=== PATIENT | male | born 1950 | race Caucasian/White ===

== ENCOUNTER 2024-11-19 23:11 | Emergency (ER) | payer MEDICARE, BC, SELFPAY ==
--- NOTE | 2024-11-19 23:13 | CT_ITS ---
PROCEDURE INFORMATION: Exam: CT Head Without Contrast Exam date and time: 11/19/2024 11:50 PM Age: 74 years old Clinical indication: Injury or trauma; Fall; Blunt trauma (contusions or hematomas); Additional info: AMS, fall TECHNIQUE: Imaging protocol: Computed tomography of the head without contrast. Radiation optimization: All CT scans at this facility use at least one of these dose optimization techniques: automated exposure control; mA and/or kV adjustment per patient size (includes targeted exams where dose is matched to clinical indication); or iterative reconstruction. COMPARISON: CT HEAD/BRAIN WO CON 11/19/2024 11:50 PM FINDINGS: Brain: No evidence for intracranial hemorrhage, mass lesions or acute stroke. Intracranial vascular calcifications. Moderate small vessel ischemic change in the periventricular white matter. Old lacunar infarct left caudate head image 3/38. Old lacunar infarcts bilateral external capsule regions. Old small lacunar infarct right basal ganglia. Encephalomalacia and gliosis left posterior parietal lobe image 3/45; likely remote infarct. Old white matter lacunar infarct left awan radiata image 5/157 Cerebral ventricles: Ex vacuo enlargement left frontal horn. Pituitary gland and sella: Negative Paranasal sinuses: Visualized sinuses are unremarkable. No fluid levels. Mastoid air cells: Visualized mastoid air cells are well aerated. Orbital cavities: Bilateral cataract extractions. Bones: Unremarkable. No acute fracture. Soft tissues: Unremarkable. Vasculature: Negative. Other findings: Mild generalized atrophy. IMPRESSION: 1. No evidence for intracranial hemorrhage, mass lesions or acute stroke. 2. Intracranial vascular calcifications. 3. Mild generalized atrophy. 4. Moderate small vessel ischemic change in the periventricular white matter. 5. Old lacunar infarct left caudate head image 3/38. 6. Ex vacuo enlargement left frontal horn. 7. Old lacunar infarcts bilateral external capsule regions. 8. Old small lacunar infarct right basal ganglia. 9. Encephalomalacia and gliosis left posterior parietal lobe image 3/45; likely remote infarct. 10. Old white matter lacunar infarct left awan radiata image 5/157 11. Bilateral cataract extractions.
--- NOTE | 2024-11-19 23:13 | XR_ITS ---
PROCEDURE INFORMATION: Exam: XR Chest Exam date and time: 11/20/2024 12:04 AM Age: 74 years old Clinical indication: Injury or trauma; Fall; Blunt trauma (contusions or hematomas); Additional info: Fall AMS TECHNIQUE: Imaging protocol: Radiologic exam of the chest. Views: 1 view. COMPARISON: CT CERVICAL SPINE WO CON 11/19/2024 11:53 PM FINDINGS: Tubes, catheters and devices: Left chest wall pacemaker/ICD with the leads in the right atrium and right ventricle. Lungs: Unremarkable. No consolidation. Pleural spaces: Unremarkable. No pleural effusion. No pneumothorax. Heart/Mediastinum: Mediastinal clips. Bones/joints: Sternotomy wires. Acute appearing minimally displaced fracture of the left anterolateral 9th rib. Mild bony deformity of the left anterolateral 5th and 6th ribs may represent nondisplaced fractures. IMPRESSION: Acute appearing minimally displaced fracture of the left anterolateral 9th rib. Mild bony deformity of the left anterolateral 5th and 6th ribs may represent nondisplaced fractures.
--- NOTE | 2024-11-19 23:13 | XR_ITS ---
PROCEDURE INFORMATION: Exam: XR Right Hip Exam date and time: 11/20/2024 12:04 AM Age: 74 years old Clinical indication: Injury or trauma; Fall; Blunt trauma (contusions or hematomas); Does not apply; Pelvic region; Additional info: Fall known hardware TECHNIQUE: Imaging protocol: Radiologic exam of the right hip. Views: 2 or 3 views hip with pelvis when performed. COMPARISON: CT BONY PELVIS 11/19/2024 11:57 PM FINDINGS: Bones/joints: Known comminuted periprosthetic right hip intertrochanteric fracture is poorly visualized on this exam. Right femoral cephalomedullary nail with interlocking screw. Moderate degenerative changes of the bilateral hips. Soft tissues: Unremarkable. IMPRESSION: Known comminuted periprosthetic right hip intertrochanteric fracture is poorly visualized on this exam.
--- NOTE | 2024-11-19 23:13 | CT_ITS ---
PROCEDURE INFORMATION: Exam: CT Cervical Spine Without Contrast Exam date and time: 11/19/2024 11:53 PM Age: 74 years old Clinical indication: Injury or trauma; Fall; Blunt trauma; Additional info: Fall, AMS TECHNIQUE: Imaging protocol: Computed tomography of the cervical spine without contrast. Radiation optimization: All CT scans at this facility use at least one of these dose optimization techniques: automated exposure control; mA and/or kV adjustment per patient size (includes targeted exams where dose is matched to clinical indication); or iterative reconstruction. COMPARISON: CT HEAD/BRAIN WO CON 11/19/2024 11:50 PM FINDINGS: Bones: Spinal alignment is normal. No fracture or bone destruction. Predental space narrowing and proliferative changes around the dens consistent with arthritis. [id number] multilevel degenerative disc disease predominantly at C5-C6, C6-C7, C7-T1 with disc space narrowing and small posterior projecting disc osteophyte complexes. Mild multilevel facet arthropathy. Lungs: Lung apices are normal. Vasculature: Bilateral carotid calcifications. Soft tissues: Unremarkable. IMPRESSION: 1. Spinal alignment is normal. 2. No fracture or bone destruction. 3. Predental space narrowing and proliferative changes around the dens consistent with arthritis. 4. [id number] multilevel degenerative disc disease predominantly at C5-C6, C6-C7, C7-T1 with disc space narrowing and small posterior projecting disc osteophyte complexes. 5. Mild multilevel facet arthropathy. 6. Bilateral carotid calcifications.
--- NOTE | 2024-11-19 23:13 | CT_ITS ---
PROCEDURE INFORMATION: Exam: CT Thoracic Spine Without Contrast Exam date and time: 11/19/2024 11:53 PM Age: 74 years old Clinical indication: Injury or trauma; Fall; Blunt trauma (contusions or hematomas); Additional info: Fall, chronic pain in exacerbation TECHNIQUE: Imaging protocol: Computed tomography of the thoracic spine without contrast. Radiation optimization: All CT scans at this facility use at least one of these dose optimization techniques: automated exposure control; mA and/or kV adjustment per patient size (includes targeted exams where dose is matched to clinical indication); or iterative reconstruction. COMPARISON: CT CERVICAL SPINE WO CON 11/19/2024 11:53 PM FINDINGS: Tubes, catheters and devices: Partially included pacemaker wires in the right atrium and right ventricle. Watchman device. Bones/joints: No acute fracture or malalignment. Mild multilevel spondylosis. Mild lower thoracic Schmorl nodes. Soft tissues: Unremarkable. Coronary arteries: Severe coronary artery calcifications. IMPRESSION: No acute fracture or malalignment.
--- NOTE | 2024-11-19 23:13 | CT_ITS ---
PROCEDURE INFORMATION: Exam: CT Pelvis Without Contrast, Skeleton Exam date and time: 11/19/2024 11:57 PM Age: 74 years old Clinical indication: Injury or trauma; Fall; Blunt trauma (contusions or hematomas); Bilateral; Pelvic region; Additional info: Fall recent R hip FX TECHNIQUE: Imaging protocol: Computed tomography of the pelvis without contrast. Exam focused on the skeleton. Radiation optimization: All CT scans at this facility use at least one of these dose optimization techniques: automated exposure control; mA and/or kV adjustment per patient size (includes targeted exams where dose is matched to clinical indication); or iterative reconstruction. COMPARISON: CT LUMBAR SPINE WO CON 11/19/2024 11:53 PM FINDINGS: Reproductive: Prominent prostatomegaly measuring 7.5 x 6.7 x 9.9 cm with prominent intravesicular prostatic protrusion. Bones/joints: Acute mildly comminuted intertrochanteric periprosthetic right femur fracture. Postoperative changes of right femoral cephalomedullary nail with interlocking screw. The hardware is intact. Bilateral hip joints are intact. Mild fragmentation of the bilateral posterior acetabular shipman likely secondary to degenerative changes. Soft tissues: Right hip postoperative changes. IMPRESSION: 1. Acute mildly comminuted intertrochanteric periprosthetic right femur fracture. The hardware is intact. 2. Prominent prostatomegaly with large intravesicular prostatic protrusion. Recommend correlation with PSA
--- NOTE | 2024-11-19 23:13 | CT_ITS ---
PROCEDURE INFORMATION: Exam: CT Lumbar Spine Without Contrast Exam date and time: 11/19/2024 11:53 PM Age: 74 years old Clinical indication: Injury or trauma; Fall; Blunt trauma (contusions or hematomas); Additional info: Fall, chronic pain in exacerbation TECHNIQUE: Imaging protocol: Computed tomography of the lumbar spine without contrast. Radiation optimization: All CT scans at this facility use at least one of these dose optimization techniques: automated exposure control; mA and/or kV adjustment per patient size (includes targeted exams where dose is matched to clinical indication); or iterative reconstruction. COMPARISON: CT THORACIC SPINE WO CON 11/19/2024 11:53 PM FINDINGS: Bones/joints: No acute fracture. Moderate multilevel spondylosis. Mild facet arthropathy. Partial bilateral L5 pars defects. Mild disc bulge throughout the lumbar spine with no significant spinal canal stenosis. Mild multilevel neural foraminal narrowing most notably L5-S1. Soft tissues: Unremarkable. IMPRESSION: 1. No acute fracture or malalignment. 2. Multilevel spondylosis without significant spinal canal stenosis. Mild multilevel neural foraminal narrowing
--- NOTE | 2024-11-19 23:16 | ED_ITS ---
Discharge Plan Disposition Patient Disposition: Home, Self-Care Condition: Good Prescriptions Prescriptions: New bacitracin 500 unit/gram packet 1 applic topical BID Qty: 144 0RF Rx Instructions: Apply to scalp wound twice daily for 7 days Referrals Follow up/Referrals: Humera Cowart MD [Physician] - See instructions (incidental pulmonary nodule) Activity Restrictions/Add. Instructions Additional Instructions/Restrictions: Boris was evaluated in the ER and is appropriate for discharge at this time. Continue all home medications as previously prescribed. He should continue following up with all of his specialists including cardiology, Ortho as scheduled. Use the prescribed bacitracin as directed on the scalp wound. Keep it clean and dry. He should also follow-up with his primary care doctor for reevaluation in a few days. Return to the ER with any new, worsening, or otherwise concerning symptoms. Clinical Impressions Clinical Impression: Fall, Dementia, Combative behavior, Abrasion of scalp, Pulmonary nodule Instructions Patient Instructions: DI for Altered Mental Status Print Language Print Language: Urugu[place] Discharge ED Provider: Carina Charles General Adult HPI General Chief complaint: Fall Stated complaint: AMS, agitated Time Seen by Provider: 11/19/24 23:12 History of Present Illness HPI narrative: 74-year-old male with history of recent right hip fracture and surgery who reportedly was admitted to [facility] from [place] after his initial injury presents to the ER after concerns of fall and combativeness. EMS reports patient slid out of his chair at the long term. Mild strike to the back of the head with abrasion but no loss of consciousness. Reportedly after falling, staff attempting to assist him but he became combative. EMS reports patient was pleasant with them as long as he was not provoked. They do report he has been confused and only seemed oriented to self. Patient complains of right hip pain but states it is not any worse than it had been previously. He also states he has chronic back and neck pain which are not worse than normal. He denies any other pain. He does have mild confusion and difficulty answering questions and states he has been forgetful for the last few days. He denies feeling sick, denies fevers, chills, chest pain or cough, no difficulty breathing, denies abdominal pain, nausea, vomiting, diarrhea, or dysuria. Patient reports to me he is currently living with his and thinks his is messing up his medications. Patient is currently living at [facility]. Related Data Previous Rx's ?Medication ?Instructions ?Recorded bacitracin 500 unit/gram topical 1 applic topical BID #144 ea 11/20/24 packet Allergies Allergy/AdvReac Type Severity Reaction Status Date / Time No Known Allergies Allergy Verified 11/19/24 23:42 [facility] Disclaimer: The information contained in this section may have been updated after the patient was seen, as this information can be updated by other users. Social History Smoking Status: Former smoker alcohol intake: former current occupational status: retired Travel in the last 8 weeks: None ROS Obtained: Yes Systems reviewed as appropriate & no additional complaints except as documented per HPI Physical Exam General General appearance: alert and in no apparent distress Head Head exam: normocephalic and other (Old, healing abrasion on patient's frontal scalp, new, hemostatic abrasion on patient's posterior parietal scalp) Eye Eye exam: Present PERRL and EOMI ENT ENT exam: Present mucous membranes moist Neck Neck exam: Present normal inspection and full ROM; Absent tenderness Chest Chest inspection: Present symmetric chest wall rise; Absent tenderness Respiratory Respiratory exam: Present normal lung sounds bilaterally and other (Saturating 95% on room air); Absent respiratory distress, wheezes or stridor Cardiovascular Cardiovascular exam: Present tachycardia and irregular rhythm Abdominal Exam Abdominal exam: Present soft; Absent distention or tenderness Extremities Exam Extremities exam: Present full ROM, edema (Mild +1 bilateral pitting edema) and other (Right hip with 2 small incisions with nicole. Incisions are clean, dry, healing well, no evidence of infection. No dehiscence); Absent joint swelling or calf tenderness Back Exam Back exam: Absent tenderness Neurological Exam Neurological exam: Present alert; Absent oriented X3 (Oriented only to self) or motor sensory deficit Psychiatric Psychiatric exam: Present normal affect and normal mood Skin Skin exam: Present warm and dry Medical Decision Making Medical Records Medical records reviewed: Yes I reviewed the patient's medical records. Screening: Per USPSTF and CDC recommendations, given the prevalence of disease in our region, it is our hospital?s policy to screen for HIV and viral Hepatitis for all patients aged 18 and over and those with ongoing risk factors. [facility] Inquiry Pt receiving controlled substance: No Vital Signs: 11/19/24 23:30 11/20/24 04:12 Temperature 97.9 F 98.4 F Temperature Source Oral Pulse Rate 115 H Pulse Rate [Right] 111 H Respiratory Rate 22 20 Blood Pressure 130/77 Blood Pressure [Right Arm] 123/86 Blood Pressure Mean [Right Arm] 98 02 Sat by Pulse Oximetry 95 Lab Data Lab Results 11/19/24 01:19: Urine Color Yellow, Urine Appearance Clear, Urine pH 5.5, Ur Specific Rogers >= 1.030, Urine Protein 30, Urine Glucose (UA) Negative, Urine Ketones Negative, Urine Blood Large, Urine Nitrate Negative, Urine Bilirubin Negative, Urine Urobilinogen 0.2, Ur Leukocyte Esterase Negative, Urine RBC 20- 50, Urine WBC None, Ur Squamous Epith Cells Occasional, Urine Bacteria Trace, Urine Opiates Screen Negative, Urine Methadone Screen Negative, Ur Barbituates Screen Negative, Ur Phencyclidine Scrn Negative, Ur Amphetamines Screen Negative, U Benzodiazepines Scrn Negative, Urine Cocaine Screen Negative, U Marijuana (THC) Screen Negative 11/19/24 23:25: WBC 7.2, RBC 3.24 L, Hgb 8.9 L, Hct 28.0 L, MCV 86.4, MCH 27.5, MCHC 31.8, RDW 16.6, Plt Count 447 H, MPV 9.4, Neut % (Auto) 72.6, Lymph % (Auto) 16.6, Adams % (Auto) 7.7, Eos % (Auto) 1.9, Baso % (Auto) 0.6, Neut # (Auto) 5.3, Lymph # (Auto) 1.2, Adams # (Auto) 0.6, Eos # (Auto) 0.1, Baso # (Auto) 0.0, PT 11.6, INR 1.04, Sodium 136, Potassium 3.5, Chloride 100, Carbon Dioxide 34 H, Anion Gap 5.5, BUN 19, Creatinine 1.20, Estimated Creat Clear 60, Estimated GFR 59, Est GFR ( Amer) 71, Glucose 221 H, Calcium 8.9, Total Bilirubin 0.5, AST 25, ALT 19, Alkaline Phosphatase 99, Troponin I 0.03, Total Protein 7.1, Albumin 4.0, Globulin 3.1, Albumin/Globulin Ratio 1.3 11/19/24 23:29: VBG pH 7.35, VBG pCO2 47.6, VBG pO2 33.0, VBG HCO3 25.9, VBG Total CO2 27.4 H, VBG O2 Saturation 57.2, VBG Base Excess 0.4, VBG Lactic Acid 2.4 H 11/20/24 03:20: Troponin I 0.02 11/19/24 23:25 11/19/24 23:25 Orders (Tests/Meds): ED MEDICATIONS Discontinued Medications Generic Name Dose Route Start Last Admin Trade Name Freq PRN Reason Stop Dose Admin Lactated Ringer's 1,000 mls @ 999 mls/hr 11/19/24 23:13 11/19/24 23:54 Lactated Ringer's 1000 Ml Bag IV 11/20/24 00:13 999 mls/hr .Q1H1M ONE Administration Iopamidol 75 ml 11/20/24 01:58 11/20/24 01:58 Iopamidol-370 (76%);100ml Bottle IV 11/20/24 01:59 75 ml ONCE ONE Administration Morphine Sulfate 4 mg 11/20/24 01:51 11/20/24 02:00 Morphine 4mg/Ml Syringe IV 11/20/24 01:52 4 mg ONCE ONE Administration Sodium Chloride 10 ml 11/20/24 01:58 11/20/24 01:58 Sodium Chloride 0.9% 10ml Syr (Rad Only) IV 12/20/24 01:57 10 ml NEEDED PRN Administration Maintain IV Site ORDERS Category Date Time Status CT abdomen pelvis w con Stat Cat Scan 11/20/24 01:[address] bony pelvis Stat Cat Scan 11/19/24 23:[address] cervical spine wo con Stat Cat Scan 11/19/24 23:[address] chest w con Stat Cat Scan 11/20/24 01:[address] head/brain wo con Stat Cat Scan 11/19/24 23:[address] lumbar spine wo con Stat Cat Scan 11/19/24 23:[address] thoracic spine wo con Stat Cat Scan 11/19/24 23:13 Completed CXR --portable [XR chest portable] Stat Exams 11/19/24 23:13 Completed Hip XR right minimum 2 views [XR hip RT 2-3V w/pelvis] Exams 11/19/24 23:13 Completed Stat CBC w/Auto Diff [Complete Blood Count Auto Diff] Stat Lab 11/19/24 23:25 Completed CMP [Comprehensive Metabolic Panel] Stat Lab 11/19/24 23:25 Completed Lactic Acid Follow Up (RFLX 1) Stat Lab 11/20/24 03:36 Ordered PT INR [Prothrombin Time INR] Stat Lab 11/19/24 23:25 Completed Trop I [Troponin I] Stat Lab 11/19/24 23:25 Completed Troponin I Q3H Lab 11/20/24 03:20 Completed Troponin I Q3H Lab 11/20/24 05:30 Ordered UDS [Drug Screen,Urine] Stat Lab 11/19/24 01:19 Completed Urinalysis and Microscopic Stat Lab 11/19/24 01:19 Completed VBG [Venous Blood Gas] Stat RT 11/19/24 23:29 Completed Medical Decision Narrative: In summary, this 74-year-old male with comorbidities including dementia, recent fall with right hip fracture and ORIF presents to the emergency department today with concerns of agitation and combativeness from long term as well as fall. On initial evaluation patient is hemodynamically stable, afebrile. Patient has transient tachycardia and appears to be in A-fib with normotensive blood pressures. He has old well-healing scrape on his forehead with new abrasion on the right posterior parietal scalp without associated hematoma or evidence of skull fracture, patient is a GCS 14 only oriented to self. 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 Patient reports unchanged pain in his right hip and back. Right hip has well-healing surgical incisions. No tenderness along the spine, chest, pelvis, or extremities. Differential diagnosis includes but is not limited to intracranial bleed, cannot rule out C-spine injury with patient's age, also considered other spine injury, new hip fracture, intrathoracic injury though I have lower suspicion for this. With patient's combativeness I considered advancing dementia, urinary tract infection, metabolic abnormality. Based on these concerns, I ordered noncontrast head CT and CTs of the spine and pelvis, serum labs, urine studies. ECG personally interpreted demonstrates atrial fibrillation, rate 115, indeterminate axis, normal QTc, right bundle branch block, patient has lateral ST changes but no STEMI. Repeat ECG demonstrates patient continues to be in A- fib with rate 121, indeterminate axis, right bundle branch block, normal QTc, no STEMI, no dynamic changes. Patient is afebrile varied between the 80s and 120s while in the ER. Never required intervention. He was normotensive throughout. Patient received IV fluids initially for treatment. Labs personally reviewed demonstrate no leukocytosis,. Patient has anemia with hemoglobin 8.9 nonactionable at this time, mild thrombocythemia, PT/INR normal, VBG with slightly elevated lactic which is nonspecific, patient is already receiving IV fluids. CMP nonactionable at this time. Initial troponin 0.03 repeat troponin pending. XR personally interpreted demonstrates chest and pelvic x-ray personally interpreted do not demonstrate pneumothorax, hemothorax, or new pelvic fracture. Radiology read comments on left rib fracture Initial CT imaging of the head and spines were personally interpreted by me and do not demonstrate acute traumatic injury, patient does have age-related changes and degenerative changes of the spine. See radiology read for full interpretations Radiology read of the pelvis, and send intertrochanteric hip fracture. We obtained records from [place] which demonstrate that this was the patient's initial injury when he had the ORIF. Due to the findings of left rib fracture on x-ray, I added CT chest, abdomen, pelvis with contrast to ensure there was no other new traumatic injury. On CT the rib fracture appears to be subacute. Patient does not have acute tenderness in this area either. No acute intra- abdominal pathology. Referral for follow-up of incidental pulmonary nodule was provided. After CT patient was complaining of pain so he received small dose of IV morphine. He typically takes Percocet at the nursing facility. Patient's was contacted. She states the patient does have a history of atrial fibrillation and is not on blood thinners because he has a watchman. He does take aspirin and Plavix. He also takes metoprolol for rate control. She also states the patient has dementia and has brief episodes of clarity followed by confusion. She states the agitation and combativeness has been the newer problem. Repeat troponin 0.02. No UTI. Patient is resting comfortably and has not been combative with us. When he got woken up from sleep, he was briefly agitated but very easily verbally de-escalated and reassured. I believe his combativeness is likely a combination of dementia combined with pain from his injury and surgery as well as living in the nursing facility which is likely confusing to him. I do not have an indication for admission at this time since patient has reassuring labs and no evidence of acute traumatic injury on imaging. I believe he is appropriate to go back to the facility at this time. Scalp wound was cleaned and I prescribed bacitracin for outpatient use. Patient and facility were given instructions on continued symptomatic monitoring and management, follow-up, return precautions. Understanding was indicated and the patient was discharged in stable condition. Critical Care Critical Care Time Critical Care Time: No
[2024-11-19 23:30] VITALS: BP 123/86; PULSE 111; RESP 22; TEMP 36.6; O2SAT 95; BMI 26.6
[2024-11-19 23:33] LABS: Basophils % 0.6 % (0.1-2.0); Eosinophils # 0.1 K/mm3 (0.0-0.4); Eosinophils % 1.9 % (0.1-12.0); Hemoglobin 8.9 g/dL (14.1-18.0); Lymphocytes # 1.2 K/mm3 (0.7-4.5); Lymphocytes % 16.6 % (10-50); Mean Corpuscular HGB Conc 31.8 g/dL (31.8-35.4); Mean Corpuscular Hemoglobin 27.5 pg (27.0-31.2); Mean Corpuscular Volume 86.4 fl (80-94); Mean Platelet Volume 9.4 fl (7.4-10.4); Monocytes # 0.6 K/mm3 (0.1-1.0); Monocytes % 7.7 % (1.7-9.3); Neutrophils # 5.3 K/mm3 (1.8-7.8); Neutrophils % 72.6 % (37.0-80.0); Platelet Count 447 K/mm3 (142-424); Red Blood Count 3.24 M/mm3 (4.60-6.20); Red Cell Distribution Width 16.6 % (11.5-17.5); White Blood Count 7.2 K/mm3 (4.8-10.8)
[2024-11-19 23:34] LABS: VBG Base Excess 0.4 mmol/L (-2.4-2.3); VBG HCO3 25.9 mmol/L (23-30); VBG Oxygen Saturation 57.2 % (50-70); VBG PCO2 47.6 mmol/L (35-51); VBG PH 7.35 mmol/L (7.31-7.41); VBG Total CO2 27.4 mmol/L (23-27)
[2024-11-19 23:36] LABS: Lactate Venous 2.4 mmol/L (0.4-2.0)
[2024-11-19 23:38] LABS: Chloride 100 mmol/L (98-107)
[2024-11-19 23:39] LABS: Potassium 3.5 mmoL/L (3.5-5.1); Sodium 136 mmol/L (136-145)
--- NOTE | 2024-11-19 23:40 | ECG_ITS ---
APPROVED REPORT Exam: Resting ECG HR:115 bpm ECG Measurements Heart Rate 115 AXES QRSd 141 QRS -32 QT 361 T 38 QTc 429 Conclusion ATRIAL FIBRILLATION WITH RAPID VENTRICULAR RESPONSE INDETERMINATE AXIS RIGHT BUNDLE BRANCH BLOCK [120+ ms QRS DURATION, UPRIGHT V1, 40+ ms S IN I/aVL/V4/V5/V6] ST DEVIATION AND MODERATE T-WAVE ABNORMALITY, CONSIDER LATERAL ISCHEMIA [-0.1+ mV T-WAVE IN I/aVL/V5/V6] No STEMI Electronically signed by : MARSHALL UMANA, 11/20/2024 06:19:24
[2024-11-19 23:41] LABS: Blood Urea Nitrogen 19 mg/dl (9-20); Creatinine Clearance Estimated 60 mL/min (50-200); Estimated Glomerular Filt Rate 59 ml/min (>60); GFR (African American) 71 ML/MIN (>60)
[2024-11-19 23:42] LABS: Alanine Aminotransferase 19 U/L (12-78); Albumin/Globulin Ratio 1.3 (1.1-1.8); Alkaline Phosphatase 99 U/L (38-126); Anion Gap 5.5 mEq/L (5-15); Aspartate Amino Transferase 25 U/L (17-59); Bilirubin,Total 0.5 mg/dl (0.2-1.3); Calcium 8.9 mg/dl (8.4-10.2); Carbon Dioxide 34 mmol/L (22.0-30.0); Globulin 3.1 g/dL (1.3-3.2); Glucose 221 mg/dl (74-100); Total Protein,Serum 7.1 g/dl (6.3-8.2)
[2024-11-19 23:43] LABS: INR 1.04 (0.9-1.1); Prothrombin Time 11.6 seconds (10.1-12.5)
[2024-11-19 23:53] LABS: Troponin I 0.03 ng/ml (0.00-0.034)
[2024-11-19] MEDS: LACTATED RINGERS 1000ML 1,000 ML 999 ML IV (23:54)
--- NOTE | 2024-11-20 00:31 | ECG_ITS ---
APPROVED REPORT Exam: Resting ECG HR:121 bpm ECG Measurements Heart Rate 121 AXES QRSd 140 QRS 131 QT 394 T 18 QTc 466 Conclusion ATRIAL FIBRILLATION WITH RAPID VENTRICULAR RESPONSE INDETERMINATE AXIS RIGHT BUNDLE BRANCH BLOCK [120+ ms QRS DURATION, UPRIGHT V1, 40+ ms S IN I/aVL/V4/V5/V6] LEFT POSTERIOR FASCICULAR BLOCK [QRS AXIS > 109, INFERIOR Q] ST DEPRESSION, CONSIDER SUBENDOCARDIAL INJURY [0.1+ mV ST DEPRESSION] No STEMI Electronically signed by : MARSHALL UMANA, 11/20/2024 06:19:02
[2024-11-20 01:23] LABS: Microscopic, Urine URINE MICROSCOPIC (MICROSCOPIC)
[2024-11-20 01:28] LABS: Appearance,Urine CLEAR (Clear); Bilirubin,Urine Negative (Negative); Blood, Urine LARGE (Negative); Color,Urine YELLOW (Yellow); Glucose,Urine (UA) Negative (Negative); Ketones,Urine Negative (Negative); Leukocyte Esterase,Urine Negative (Negative); Nitrate,Urine Negative (Negative); PH,Urine 5.5 (5.0-8.5); Protein,Urine 30 (Negative); Specific Gravity, Urine >= 1.030 (1.005-1.030); Urobilinogen,Urine 0.2 EU/dl (0.2)
--- NOTE | 2024-11-20 01:31 | CT_ITS ---
PROCEDURE INFORMATION: Exam: CT Abdomen And Pelvis With Contrast Exam date and time: 11/20/2024 1:51 AM Age: 74 years old Clinical indication: Injury or trauma; Fall; Blunt; Abdominal wall TECHNIQUE: Imaging protocol: Computed tomography of the abdomen and pelvis with contrast. Radiation optimization: All CT scans at this facility use at least one of these dose optimization techniques: automated exposure control; mA and/or kV adjustment per patient size (includes targeted exams where dose is matched to clinical indication); or iterative reconstruction. Contrast material: ISOVUE; Contrast volume: 75 ml; Contrast route: IV; COMPARISON: CT BONY PELVIS 11/19/2024 11:57 PM FINDINGS: Liver: Unremarkable. Gallbladder and biliary ducts: Cholelithiasis without evidence of acute cholecystitis. Pancreas: Unremarkable. Spleen: Splenic granulomas. Adrenal glands: Unremarkable. Kidneys and ureters: Bilateral simple cortical renal cysts. No hydronephrosis. Stomach and bowel: No mechanical obstruction. No mucosal thickening. Appendix: Unremarkable. Intraperitoneal space: No free air or free fluid. Vasculature: Mild-moderate atherosclerotic changes of the aorta and its major branches. Lymph nodes: Unremarkable. Urinary bladder: Poorly distended bladder. Reproductive: Prominent prostatomegaly measuring 7.5 x 6.7 x 9.9 cm with prominent intravesicular prostatic protrusion. Bones/joints: Acute mildly comminuted intertrochanteric periprosthetic right femur fracture. Postoperative changes of right femoral cephalomedullary nail with interlocking screw. Subacute/chronic T9 and T10 left lateral rib fractures. Soft tissues: Postoperative changes in the right hip. IMPRESSION: 1. No acute abdominopelvic abnormality. 2. Redemonstration of the acute mildly comminuted intertrochanteric periprosthetic right femur fracture. 3. Prominent prostatomegaly with large intravesicular prostatic protrusion. Recommend correlation with PSA. COMMENTS: Consistent with the [employer]'s Incidental Findings Committee white paper (J Am Randy Radiol 2018): Any incidental renal lesion less than 1 cm or classified as too small to characterize, or any incidental cystic renal lesion characterized as simple-appearing, is likely benign. No follow-up imaging is recommended for these lesions per consensus recommendations based on imaging criteria.
--- NOTE | 2024-11-20 01:32 | CT_ITS ---
PROCEDURE INFORMATION: Exam: CT Chest With Contrast; Diagnostic Exam date and time: 11/20/2024 1:51 AM Age: 74 years old Clinical indication: Injury or trauma; Fall; Fracture, traumatic; Other: Unknown; Additional info: Fall, L rib FX on XR TECHNIQUE: Imaging protocol: Diagnostic computed tomography of the chest with contrast. Radiation optimization: All CT scans at this facility use at least one of these dose optimization techniques: automated exposure control; mA and/or kV adjustment per patient size (includes targeted exams where dose is matched to clinical indication); or iterative reconstruction. Contrast material: ISOVUE; Contrast volume: 75 ml; Contrast route: IV; COMPARISON: CR XR CHEST PORTABLE 11/20/2024 12:04 AM FINDINGS: Tubes, catheters and devices: Left chest wall pacemaker/ICD with the leads in the right atrium and right ventricle. Watchman device. Lungs: Unremarkable. No consolidation. No masses. Pleural spaces: 15 x 7 mm subpleural left upper lobe nodule (series 3, image 41). No pneumothorax. No pleural effusion. Heart: Unremarkable. No cardiomegaly. No pericardial effusion. Coronary arteries: Severe coronary artery calcifications. Lymph nodes: Unremarkable. No enlarged lymph nodes. Vasculature: Common takeoff of the left common carotid and right brachiocephalic arteries. Mild atherosclerotic changes of the aorta and its major branches. Gallbladder and biliary ducts: Cholelithiasis without evidence of acute cholecystitis. Spleen: Splenic granulomas. Bones/joints: Subacute/chronic left lateral 9th rib fracture. Moderate lower cervical spondylosis. Severe degenerative changes of the bilateral AC joints. Soft tissues: Unremarkable. IMPRESSION: 1. No acute findings. 2. Subacute/chronic left lateral 9th rib fracture. 3. Incidental subpleural left upper lobe pulmonary nodule. For both low risk and high risk patients, consider CT Chest at 3 months, PET/CT, or biopsy. (Reference: Axel) REFERENCES: Axel Mason et al. Guidelines for Management of Incidental Pulmonary Nodules Detected on CT Images: From the [employer] 2017. Radiology. 2017;284(1):228-243.
[2024-11-20 01:38] LABS: Barbiturates Screen,Urine Negative ng/ml (<200); Benzodiazepines Screen,Urine Negative ng/ml (<200)
[2024-11-20 01:39] LABS: Amphetamine/Metha Screen,Urine Negative ng/ml (<1000); Cannabinoid Screen,Urine Negative ng/ml (<50)
[2024-11-20 01:40] LABS: Cocaine Screen,Urine Negative ng/ml (<300)
[2024-11-20 01:41] LABS: Methadone Screen,Urine Negative ng/ml (<300); Opiate Screen,Urine Negative ng/ml (<300)
[2024-11-20 01:42] LABS: Phencyclidine Screen,Urine Negative ng/ml (<25)
[2024-11-20] MEDS: IOPAMIDOL-370 (76%);100ML BOTTLE 75 ML IV (01:58)
[2024-11-20] MEDS: SODIUM CHLORIDE 0.9% 10ML SYR (RAD ONLY) 10 ML IV (01:58)
[2024-11-20] MEDS: MORPHINE 4MG/ML SYRINGE 4 MG IV (02:00)
[2024-11-20 02:08] LABS: Bacteria,Urine Trace /lpf; RBC,Urine 20-50 #/hpf (0-3); Squamous Epithelial Cell,Urine Occasional #/hpf (0-5)
--- NOTE | 2024-11-20 03:15 | PC.NURSE ---
Spoke with pt per MD request for clarification on patient mentation baseline. states that patient has intermittent moments of lucidity mixed with confusion. Patient with dx of dementia. She states that it is not normal that patient is combative. This behavior is new to to which she is concerned. Reports that patient also has a watchmen device, along with dx of afib to which patient had an ablation performed in Jul 2024 and take aspirin and plavix for dx. All information relayed to Dr. Charles after phone call.
[2024-11-20 03:36] LABS: Reflex Lactic Add Lactic Reflex
[2024-11-20 03:54] LABS: Troponin I 0.02 ng/ml (0.00-0.034)
[2024-11-20 04:12] VITALS: BP 130/77; PULSE 115; RESP 20; TEMP 36.9; O2SAT 100
== END 2024-11-20 04:32 | disposition home or self-care (01) ==
PROVIDERS: Emergency Provider Emergency Medicine; PCP Family Medicine Hospice and Palliative Medicine
DX: F03.911 Unspecified dementia, unspecified severity, with agitation (principal); W07.XXXA Fall from chair, initial encounter; S22.32XA Fracture of one rib, left side, initial encounter for closed fracture; S00.01XA Abrasion of scalp, initial encounter; Y92.129 Unspecified place in nursing home as the place of occurrence of the external cause; R91.1 Solitary pulmonary nodule; G89.29 Other chronic pain; M54.2 Cervicalgia; M54.9 Dorsalgia, unspecified; R00.0 Tachycardia, unspecified; I48.91 Unspecified atrial fibrillation; R60.9 Edema, unspecified; D64.9 Anemia, unspecified; D75.839 Thrombocytosis, unspecified; R79.89 Other specified abnormal findings of blood chemistry; I45.10 Unspecified right bundle-branch block; M25.551 Pain in right hip; F10.21 Alcohol dependence, in remission; R45.6 Violent behavior; R41.82 Altered mental status, unspecified; Z74.1 Need for assistance with personal care; Z95.811 Presence of heart assist device; Z87.891 Personal history of nicotine dependence
CPT/HCPCS: 70450; 71045; 71260; 72125; 72128; 72131; 72192; 73502; 74177; 80053; 80307; 81001; 82803; 84484; 85025; 85610; 93005; 96361; 96374; 96375; 99285; J2270; J7120; Q9967